=== PATIENT | male | born 1965 | race Two or more races ===

== ENCOUNTER 2018-08-27 17:55 | Inpatient (IN) | payer OTHER ==
[2018-08-27 18:20] VITALS: BMI 21.8
--- NOTE | 2018-08-27 21:15 | HP ---
CIWA Score Nausea/Vomitin (VOMITIG X 3) Muscle Tremors: 4-Moderate,w/Arms Extend Anxiety: 3 Agitation: 3 Paroxysmal Sweats: 1-Minimal Palms Moist Orientation: 1-Uncertain about Date Tacttile Disturbances: 0-None Auditory Disturbances: 0-None Visual Disturbances: 0-None Headache: 3-Moderate CIWA-Ar Total Score: 17 - Admission Criteria [facility]ASAS Guidelines: Admission for Medically Managed Detox: Requires at least one of the followin. CIWA greater than 12 2. Seizures within the past 24 hours 3. Delirium tremens within the past 24 hours 4. Hallucinations within the past 24 hours 5. Acute intervention needed for co occurring medical disorder 6. Acute intervention needed for co occurring psychiatric disorder 7. Severe withdrawal that cannot be handled at a lower level of care (continued vomiting, continued diarrhea, abnormal vital signs) requiring intravenous medication and/or fluids 8. Admission ROS S - [facility] Chief Complaint: ALCOHOL WITHDRAWAL SYMPTOMS Allergies/Adverse Reactions: Allergies Allergy/AdvReac Type Severity Reaction Status Date / Time No Known Allergies Allergy Verified 08/27/18 18:32 History of Present Illness: 53 years oll male with a long history of alcohol dependence is seeking admission to detox. Patient has been in previous detox and reports insignificant period of sobriety. He has history of depression and denies insignificant period of sobriety. He denies suicide attempt and suicidal ideation at this time. Exam Limitations: No Limitations - Ebola screening Have you traveled outside of the country in the last 21 days: No (N) Have you had contact with anyone from an Ebola affected area: No Have you been sick,other than usual withdrawal symptoms: No Do you have a fever: No - Review of Systems Constitutional: Chills, Loss of Appetite, Malaise, Changes in sleep, Weakness EENT: reports: No Symptoms Reported Respiratory: reports: No Symptoms reported Cardiac: reports: No Symptoms Reported GI: reports: Nausea, Poor Appetite, Poor Fluid Intake, Vomiting, Abdominal cramping : reports: No Symptoms Reported Musculoskeletal: reports: Back Pain, Muscle Pain Integumentary: reports: Dryness Neuro: reports: Headache, Tremors Endocrine: reports: No Symptoms Reported Hematology: reports: No Symptoms Reported Psychiatric: reports: Anxious, Depressed Other Systems: Reviewed and Negative Patient History - Patient Medical History Hx Anemia: No Hx Asthma: No Hx Chronic Obstructive Pulmonary Disease (COPD): No Hx Cardiac Disorders: No Hx Hypertension: No Hx Hypercholesterolemia: No Hx Pacemaker: No HX Cerebrovascular Accident: No Hx Seizures: No Hx Dementia: No Hx Diabetes: No Hx Gastrointestinal Disorders: No Hx Genitourinary Disorders: No Hx Sexually Transmitted Disorders: No Hx Renal Disease (ESRD): No Hx Human Immunodeficiency Virus (HIV): No Hx Hepatitis C: No Hx Depression: Yes (Not o medication) Hx Suicide Attempt: No Hx Schizophrenia: No - Patient Surgical History Past Surgical History: No Hx Neurologic Surgery: No Hx Cataract Extraction: No Hx Cardiac Surgery: No Hx Lung Surgery: No Hx Breast Surgery: No Hx Breast Biopsy: No Hx Abdominal Surgery: No Hx Appendectomy: No Hx Cholecystectomy: No Hx Genitourinary Surgery: No Hx Section: No Hx Orthopedic Surgery: No Anesthesia Reaction: No - PPD History Previous Implant?: No Documented Results: Negative w/o proof Date: 12/09/15 PPD to be Administered?: Yes - Reproductive History Patient is a Female of Child Bearing Age (11 -55 yrs old): No (Male) - Smoking Cessation Smoking history: Former smoker Have you smoked in the past 12 months: No If you are a former smoker, when did you quit?: IN 1989 Hx Chewing Tobacco Use: No Initiated information on smoking cessation: No - Substance & Tx. History Hx Alcohol Use: Yes Hx Substance Use: No Substance Use Type: Alcohol Hx Substance Use Treatment: Yes ([facility]) - Substances Abused Alcohol Route: Oral Frequency: Daily Amount used: LIQUOR- 2 PINTS, BEER- 2 SIX PACK Age of first use: 19 Date of Last Use: 08/27/18 Family Disease History - Family Disease History Family History: Denies Admission Physical Exam [facility] - Vital Signs Vital Signs: Vital Signs - 24 hr 08/27/18 18:19 Temperature 96.4 F L Pulse Rate 104 H Respiratory 18 Rate Blood Pressure 143/97 - Physical General Appearance: Yes: Moderate Distress HEENTM: Yes: Within Normal Limits, Normal ENT Inspection, Normocephalic, Normal Voice Respiratory: Yes: Lungs Clear, Normal Breath Sounds, No Respiratory Distress Neck: Yes: Supple Breast: Yes: Breast Exam Deferred Cardiology: Yes: Tachycardia Abdominal: Yes: Normal Bowel Sounds Genitourinary: Yes: Within Normal Limits Back: Yes: Normal Inspection Musculoskeletal: Yes: Muscle Pain Extremities: Yes: Tremors Neurological: Yes: Alert, Normal Mood/Affect Integumentary: Yes: Warm Lymphatic: Yes: Within Normal Limits - Diagnostic (1) Depression Current Visit: Yes Status: Chronic Qualifiers: Depression Type: unspecified Qualified Code(s): F32.9 - Major depressive disorder, single episode, unspecified (2) Alcohol dependence with uncomplicated withdrawal Current Visit: Yes Status: Chronic Cleared for Admission [facility] - Detox or Rehab [facility] Level of Care: Medically Managed Detox Regimen/Protocol: Valium S Breath Alcohol Content Breath Alcohol Content: 0.266 Urine Drug Screen - Results Drug Screen Negative: No Urine Drug Screen Results: BZO-Benzodiazepines
[2018-08-27] MEDS ORDERED: LOPERAMIDE HCL 2 MG CAPSULE PO PRN (21:22)
[2018-08-27] MEDS ORDERED: MAG HYDROX/AL HYDROX/SIMETH 30 ML UNIT-DOSE CUP PO PRN (21:22)
[2018-08-27] MEDS ORDERED: MENTHOL/PHENOL 1 EACH UD MM PRN (21:22)
[2018-08-27] MEDS ORDERED: P-EPHED 60MG/TRIPROLIDI 2.5MG TABLET PO PRN (21:22)
[2018-08-27] MEDS ORDERED: diazePAM 5 MG TABLET PO ONE (21:22)
[2018-08-27] MEDS ORDERED: MAGNESIUM CITRATE 300 ML BOTTLE PO PRN (21:22)
[2018-08-27] MEDS ORDERED: IBUPROFEN 400 MG TABLET (FP) PO PRN (21:22)
[2018-08-27] MEDS ORDERED: MAGNESIUM HYDROX 2400MG/30ML ORAL SUSPENSION 30 ML CUP PO PRN (21:22)
[2018-08-27] MEDS ORDERED: guaiFENesin/D-METHORPHAN HB 10 ML UNIT-DOSE CUPS PO PRN (21:22)
[2018-08-27] MEDS ORDERED: MELATONIN 5 MG TABLETS PO PRN (22:00)
[2018-08-27] MEDS: THIAMINE HCL 100 MG TABLET (FP) PO SCH (22:50)
[2018-08-27] MEDS: diazePAM 5 MG TABLET PO SCH (23:15)
[2018-08-27] MEDS: ACETAMINOPHEN 325 MG TABLET (FP) PO PRN (23:54)
[2018-08-28 00:39] LABS: URINE APPEARANCE CLEAR; URINE BILIRUBIN NEGATIVE (<2.0 mg/dL); URINE COLOR DKYELLOW; URINE GLUCOSE (UA) NEGATIVE (NEGATIVE); URINE KETONE 1+ (NEGATIVE); URINE LEUK ESTERASE NEGATIVE (NEGATIVE); URINE NITRITE NEGATIVE (NEGATIVE); URINE PROTEIN 2+ (NEGATIVE); URINE UROBILINOGEN 4.0 E.U/dl mg/dL (0.2-1.0)
[2018-08-28 00:44] LABS: EPI CELLS RARE /HPF (FEW); URINE HYALINE CAST 43 /lpf; URINE MUCUS RARE
[2018-08-28] MEDS: diazePAM 5 MG TABLET PO SCH ×3 (05:21→22:33)
[2018-08-28] MEDS: ACETAMINOPHEN 325 MG TABLET (FP) PO PRN ×2 (05:21→13:09)
[2018-08-28] MEDS: PRENATAL VITAMINS W/ FOLIC ACID TABLET (FP) PO SCH (09:25)
[2018-08-28] MEDS: diazePAM 5 MG TABLET PO PRN ×3 (09:25→19:33)
[2018-08-28] MEDS ORDERED: NICOTINE 14 MG/24 HOURS TOPICAL PATCH TD SCH (10:00)
[2018-08-28 10:40] LABS: HEMATOCRIT 37.4 % (35.4-49); MCH 30.7 pg (25.7-33.7); MCHC 32.2 g/dl (32.0-35.9); MEAN CELL VOLUME 95.4 fl (80-96); MEAN PLT VOLUME 9.4 fl (7.5-11.1); PLATELET COUNT 121 K/MM3 (134-434); RBC 3.92 M/mm3 (4.00-5.60); RDW 17.1 % (11.9-15.9)
[2018-08-28 11:14] LABS: ALBUMIN 3.3 g/dl (3.4-5.0); ALK PHOS 88 U/L (45-117); ANION GAP 13 MMOL/L (8-16); BILIRUBIN,TOTAL 1.4 mg/dL (0.2-1); BLOOD UREA NITROGEN 7 mg/dL (7-18); CALCIUM 7.6 mg/dL (8.5-10.1); CHLORIDE 94 mmol/L (98-107); CO2 24 mmol/L (21-32); CREATININE 0.6 mg/dL (0.55-1.3); GLUCOSE,RANDOM 84 mg/dL (74-106); POTASSIUM 3.6 mmol/L (3.5-5.1); SGOT/AST 175 U/L (15-37); SGPT/ALT 72 U/L (13-61); SODIUM 131 mmol/L (136-145); TOT PROT 7.1 g/dl (6.4-8.2)
--- NOTE | 2018-08-28 13:04 | PN ---
[facility] CIWA - CIWA Score Nausea/Vomitin-Mild Nausea/No Vomiting Muscle Tremors: 4-Moderate,w/Arms Extend Anxiety: 4-Mod. Anxious/Guarded Agitation: 4-Moderately Restless Paroxysmal Sweats: 3 Orientation: 0-Oriented Tacttile Disturbances: 1-Very Mild Itch/Numbness Auditory Disturbances: 0-None Visual Disturbances: 0-None Headache: 0-None Present CIWA-Ar Total Score: 17 [facility] Progress Note (SOAP) Subjective: Tremor, stomach ache, interrupted sleep Objective: 08/28/18 13:02 Last Vital Signs Temp Pulse Resp BP Pulse Ox 100.1 F H 115 H 18 125/82 08/28/18 09:36 08/28/18 11:00 08/28/18 11:00 08/28/18 09:36 Laboratory Tests 08/27/18 08/28/18 08/28/18 23:26 07:00 07:00 WBC 4.0 RBC 3.92 L Hgb 12.0 Hct 37.4 D MCV 95.4 MCH 30.7 MCHC 32.2 RDW 17.1 H Plt Count 121 L D MPV 9.4 Sodium 131 L Potassium 3.6 Chloride 94 L Carbon Dioxide 24 Anion Gap 13 BUN 7 Creatinine 0.6 Creat Clearance w eGFR > 60 Random Glucose 84 Calcium 7.6 L Total Bilirubin 1.4 H AST 175 H ALT 72 H Alkaline Phosphatase 88 Total Protein 7.1 Albumin 3.3 L Urine Color Dkyellow Urine Appearance Clear Urine pH 5.0 Ur Specific [place] 1.015 Urine Protein 2+ H Urine Glucose (UA) Negative Urine Ketones 1+ H Urine Blood 2+ H Urine Nitrite Negative Urine Bilirubin Negative Urine Urobilinogen 4.0 e.u/dl Ur Leukocyte Esterase Negative Urine WBC (Auto) 1 Urine RBC (Auto) 5 Ur Epithelial Cells Rare Hyaline Casts 43 Urine Mucus Rare Labs reviewed: note with; Na 131, calcium 7.6, total bilirubin 1.4, elevated AST /ALT 175/72, abnormal UA Assessment: 08/28/18 13:03 Withdrawal symptoms Noted with hyponatremia, hypocalcemia, elevated total bilirubin, elevated LFTs ( AST,ALT) and abnormal UA Plan: Continue detox Hyponatremia: repeat serum Na level on Sunday Hypocalcemia: start calcium carbonate 650mg PO bid, repeat BMP on Sunday Elevated total bilirubin: repeat total bilirubin Elevated LFTs (AST,ALT): repeat AST, ALT Abnormal UA: encouraged PO water intake, repeat UA
[2018-08-28] MEDS: CALCIUM CARBONATE 650 MG TABLET PO SCH ×2 (15:21→22:33)
[2018-08-28] MEDS: THIAMINE HCL 100 MG TABLET (FP) PO SCH (22:33)
[2018-08-29 09:31] VITALS: BP 144/99; PULSE 118; TEMP 98
--- NOTE | 2018-08-29 10:03 | PN ---
[facility] CIWA - CIWA Score Nausea/Vomitin-Mild Nausea/No Vomiting Muscle Tremors: 5 Anxiety: 4-Mod. Anxious/Guarded Agitation: 3 Paroxysmal Sweats: No Perspiration Orientation: 1-Uncertain about Date Tacttile Disturbances: 2-Mild Itch/Numbness/Burn Auditory Disturbances: 0-None Visual Disturbances: 0-None Headache: 1-Very Mild CIWA-Ar Total Score: 17 [facility] Progress Note (SOAP) Subjective: tremor anxiety restlessness ichying skin Objective: 08/29/18 11:44 Vital Signs Temperature 98.0 F 08/29/18 09:30 Pulse Rate 118 H 08/29/18 09:30 Respiratory Rate 18 08/29/18 09:30 Blood Pressure 144/99 08/29/18 09:30 O2 Sat by Pulse Oximetry (%) Laboratory Last Values WBC 4.0 K/mm3 (4.0-10.0) 08/28/18 07:00 RBC 3.92 M/mm3 (4.00-5.60) L 08/28/18 07:00 Hgb 12.0 GM/dL (11.7-16.9) 08/28/18 07:00 Hct 37.4 % (35.4-49) D 08/28/18 07:00 MCV 95.4 fl (80-96) 08/28/18 07:00 MCH 30.7 pg (25.7-33.7) 08/28/18 07:00 MCHC 32.2 g/dl (32.0-35.9) 08/28/18 07:00 RDW 17.1 % (11.9-15.9) H 08/28/18 07:00 Plt Count 121 K/MM3 (134-434) L D 08/28/18 07:00 MPV 9.4 fl (7.5-11.1) 08/28/18 07:00 Sodium 131 mmol/L (136-145) L 08/28/18 07:00 Potassium 3.6 mmol/L (3.5-5.1) 08/28/18 07:00 Chloride 94 mmol/L (98-107) L 08/28/18 07:00 Carbon Dioxide 24 mmol/L (21-32) 08/28/18 07:00 Anion Gap 13 MMOL/L (8-16) 08/28/18 07:00 BUN 7 mg/dL (7-18) 08/28/18 07:00 Creatinine 0.6 mg/dL (0.55-1.3) 08/28/18 07:00 Creat Clearance w eGFR > 60 (>60) 08/28/18 07:00 Random Glucose 84 mg/dL (74-106) 08/28/18 07:00 Calcium 7.6 mg/dL (8.5-10.1) L 08/28/18 07:00 Total Bilirubin 1.4 mg/dL (0.2-1) H 08/28/18 07:00 AST 175 U/L (15-37) H 08/28/18 07:00 ALT 72 U/L (13-61) H 08/28/18 07:00 Alkaline Phosphatase 88 U/L (45-117) 08/28/18 07:00 Total Protein 7.1 g/dl (6.4-8.2) 08/28/18 07:00 Albumin 3.3 g/dl (3.4-5.0) L 08/28/18 07:00 Urine Color Sherley 08/29/18 08:20 Urine Appearance Clear 08/29/18 08:20 Urine pH 8.0 (5.0-8.0) D 08/29/18 08:20 Ur Specific [place] 1.015 (1.010-1.035) 08/29/18 08:20 Urine Protein 1+ (NEGATIVE) H 08/29/18 08:20 Urine Glucose (UA) Negative (NEGATIVE) 08/29/18 08:20 Urine Ketones Trace (NEGATIVE) H 08/29/18 08:20 Urine Blood Negative (NEGATIVE) 08/29/18 08:20 Urine Nitrite Negative (NEGATIVE) 08/29/18 08:20 Urine Bilirubin Negative (<2.0 mg/dL) 08/29/18 08:20 Urine Urobilinogen 4.0 e.u/dl mg/dL (0.2-1.0) 08/29/18 08:20 Ur Leukocyte Esterase Negative (NEGATIVE) 08/29/18 08:20 Urine WBC (Auto) <1 /hpf (3-5) 08/29/18 08:20 Urine RBC (Auto) <1 /hpf (0-3) 08/29/18 08:20 Ur Epithelial Cells Rare /HPF (FEW) 08/29/18 08:20 Hyaline Casts 43 /lpf 08/27/18 23:26 Urine Mucus Rare 08/29/18 08:20 RPR Titer Nonreactive (NONREACTIVE) 08/28/18 07:00 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 Carbajal 08/29/18 12:07 Assessment: 08/29/18 12:12 alcohol withdrawal sx rule out urticarial vasculitits Plan: transferred to ER for further evaluation
[2018-08-29] MEDS: PRENATAL VITAMINS W/ FOLIC ACID TABLET (FP) PO SCH (10:46)
[2018-08-29] MEDS: CALCIUM CARBONATE 650 MG TABLET PO SCH ×2 (10:46→22:51)
[2018-08-29] MEDS: diazePAM 5 MG TABLET PO SCH ×2 (10:46→22:52)
[2018-08-29 10:47] LABS: URINE APPEARANCE CLEAR; URINE BILIRUBIN NEGATIVE (<2.0 mg/dL); URINE COLOR AMBER; URINE GLUCOSE (UA) NEGATIVE (NEGATIVE); URINE KETONE TRACE (NEGATIVE); URINE LEUK ESTERASE NEGATIVE (NEGATIVE); URINE NITRITE NEGATIVE (NEGATIVE); URINE PROTEIN 1+ (NEGATIVE); URINE UROBILINOGEN 4.0 E.U/dl mg/dL (0.2-1.0)
[2018-08-29 10:56] LABS: EPI CELLS RARE /HPF (FEW); URINE MUCUS RARE
[2018-08-29] MEDS: THIAMINE HCL 100 MG TABLET (FP) PO SCH (22:52)
[2018-08-31] MEDS ORDERED: diazePAM 5 MG TABLET PO SCH (10:00)
== END 2018-08-29 23:19 | disposition short-term general hospital (02) | DRG 775 ==
LOC: YASAS 17:55 → Y3N 22:03
PROVIDERS: ADMIT Neuromusculoskeletal Medicine & OMM; ATTEND Neuromusculoskeletal Medicine & OMM
PROC: HZ2ZZZZ Detoxification Services for Substance Abuse Treatment (ICD-10-PCS; principal; 2018-08-27)
DX: F10.230 Alcohol dependence with withdrawal, uncomplicated (principal); F32.9 Major depressive disorder, single episode, unspecified; E87.1 Hypo-osmolality and hyponatremia; E83.51 Hypocalcemia; R17 Unspecified jaundice; R94.5 Abnormal results of liver function studies; R82.90 Unspecified abnormal findings in urine; R21 Rash and other nonspecific skin eruption
CPT/HCPCS: 36415; 80053; 81003; 81015; 85027; 86593

== ENCOUNTER 2018-08-29 11:43 | Inpatient (IN) | payer OTHER ==
--- NOTE | 2018-08-29 12:12 | PDOC ---
History of Present Illness - General Chief Complaint: Hives Stated Complaint: BRUISING Time Seen by Provider: 08/29/18 12:09 History Source: Patient Exam Limitations: No Limitations - History of Present Illness Initial Comments: Pt is a 53 yo M, with PMH of gastritis and alcohol abuse, who is presenting with pruritic rash over his entire body since yesterday after taking Valium. Pt was admitted to [facility] for alcohol detox on Sunday08/27/2018. The pt states he has had this rash before, when he was in detox 3 years ago after taking Librium, and again [place]. He has seen a air analysis engineering technician in the past, and the rash has resolved with topical steroid cream and benadryl. Pt also admits to weight loss ~7-8 lbs over the past 1-2 months, which he attributes to his gastritis and stomach irritation after eating. Pt denies any fevers/chills, headache, vision changes, chest pain , palpitations, SOB, nausea/vomiting, urinary symptoms, diarrhea/constipation, or leg swelling. Pt denies any cigarette or drug use. Pt denies any recent travel or sick contacts. 08/29/18 13:15 Past History - Travel Traveled outside of the country in the last 30 days: No Close contact w/someone who was outside of country & ill: No - Past Medical History Allergies/Adverse Reactions: Allergies Allergy/AdvReac Type Severity Reaction Status Date / Time chlordiazepoxide AdvReac Verified 08/29/18 09:46 [From Librium] Home Medications: Ambulatory Orders Diazepam [Valium] 5 mg PO PRN 08/29/18 Anemia: No Asthma: No Cardiac Disorders: No CVA: No COPD: No Dementia: No Diabetes: No GI Disorders: Yes (gastritis) Disorders: No HTN: No Hypercholesterolemia: No Kidney Stones: No Psychiatric Problems: Yes (alcohol abuse) Seizures: No - Surgical History Abdominal Surgery: No Appendectomy: No Cardiac Surgery: No Cholecystectomy: No Lung Surgery: No Neurologic Surgery: No Orthopedic Surgery: No - Reproductive History Testicular Surgery: No - Suicide/Smoking/Psychosocial Hx Smoking History: Never smoked Have you smoked in the past 12 months: No Number of Cigarettes Smoked Daily: 2 If you are a former smoker, when did you quit?: IN 1989 Information on smoking cessation initiated: No 'Breaking Loose' booklet given: 08/27/18 Hx Alcohol Use: Yes Drug/Substance Use Hx: No Substance Use Type: Alcohol Hx Substance Use Treatment: Yes ([facility]) Review of Systems - Review of Systems Able to Perform ROS?: Yes Is the patient limited Kyrgyz proficient: No Constitutional: Yes: Loss of Appetite, Unintentional Wgt. Loss (8 lbs over 1-2 months). No: Chills, Diaphoresis, Fever, Night Sweats, Weight Stable HEENTM: No: Blurred Vision, Recent change in vision, Nose Congestion, Hearing Loss, Throat Pain, Throat Swelling, Difficulty Swallowing Respiratory: No: Cough, Orthopnea, Shortness of Breath, Wheezing Cardiac (ROS): No: Chest Pain, Edema, Irregular Heart Rate, Lightheadedness, Palpitations, Syncope, Chest Tightness ABD/GI: Yes: Poor Appetite. No: Constipated, Diarrhea, Poor Fluid Intake, Vomiting, Abdominal cramping : No: Burning, Dysuria, Frequency, Flank Pain, Pain, Urgency Musculoskeletal: No: Back Pain, Joint Pain, Muscle Pain Integumentary: Yes: Change in Color, Lesions (see HPI), Pruritus, Rash. No: Bruising, Erythema, Flushing, Lumps, Sweating Neurological: Yes: Tremors (with alcohol withdrawal). No: Headache, Seizure ( no alcohol withdrawal seizures in the past), Weakness, Unsteady Gait, Ataxia, Dizziness Psychiatric: Yes: Change in Appetite. No: Sleep Pattern Change Endocrine: Yes: Unexplained Weight Loss. No: Increased Urine Hematologic/Lymphatic: No: Anemia, Blood Clots, Easy Bleeding, Easy Bruising, Bleeding Diathesis, Swollen Glands All Other Systems: Reviewed and Negative *Physical Exam - Vital Signs Last Vital Signs Temp Pulse Resp BP Pulse Ox 98.1 F 95 H 20 152/110 H 100 08/29/18 12:02 08/29/18 12:02 08/29/18 12:02 08/29/18 12:02 08/29/18 12:02 - Physical Exam General Appearance: Yes: Nourished, Appropriately Dressed. No: Apparent Distress HEENT: positive: EOMI, KALPANA, Normal Voice, Symmetrical, TMs Normal, Pharynx Normal, Scleral Icterus (R), Scleral Icterus (L), Hearing Grossly Normal. negative: Normal ENT Inspection, Pale Conjunctivae, Muffled/Hoarse voice, Pharyngeal Erythema, Tonsillar Exudate, Tonsillar Erythema, Rhinorrhea, Sinus Tenderness, TM Bulging, TM Dull, TM Erythema, Lesions, Thrush Neck: positive: Trachea midline, Normal Thyroid, Supple. negative: Tender, Rigid, Stridor, Lymphadenopathy (R), Lymphadenopathy (L), Rigidity Respiratory/Chest: positive: Lungs Clear, Normal Breath Sounds. negative: Chest Tender, Respiratory Distress, Accessory Muscle Use, Crackles, Stridor, Wheezing Cardiovascular: positive: Regular Rhythm, S1, S2, Tachycardia. negative: Regular Rate, Edema, JVD, Murmur Vascular Pulses: Carotid (R): 4+, Carotid (L): 4+ Gastrointestinal/Abdominal: positive: Normal Bowel Sounds, Flat, Soft. negative : Tender, Organomegaly, Pulsatile Mass, Distended, Guarding, Rebound Rectal Exam: positive: deferred Lymphatic: negative: Adenopathy, Tenderness Musculoskeletal: positive: Normal Inspection. negative: CVA Tenderness Extremity: positive: Normal Capillary Refill, Normal Inspection, Normal Range of Motion, Pelvis Stable. negative: Tender, Delayed Capillary Refill, Pedal Edema Integumentary: positive: Dry, Warm, Hives, Rash (patchy, non-raised, non- scaling macular rash. No bite guardado. No petechia, no splinter hemorrhage.). negative: Normal Color, Jaundice (mild scleral icterus only), Clammy, Diaphoresis, Petechiae, Ecchymosis Neurologic: positive: nurse navigator II-XII NML intact, Fully Oriented, Alert, Normal Mood/ Affect, Normal Response, Motor Strength 5/5, Other (mild b/l hand tremor, mild tongue fasciculation). negative: EOM Palsy, Facial Droop, Numbness ED Treatment Course - LABORATORY CBC & Chemistry Diagram: 08/29/18 13:12 08/29/18 14:10 Medical Decision Making - Medical Decision Making Pt was seen at bedside, also will be seen by attending Dr. Guevara. Pt presenting with pruritic rash over his entire body since yesterday after taking Valium. Pt was admitted to [facility] for alcohol detox on Sunday08/27/2018. The pt states he has had this rash before, when he was in detox 3 years ago after taking Librium, and again [place]. He has seen a air analysis engineering technician in the past, and the rash has resolved with topical steroid cream and benadryl. Pt hypertensive (150/110) and tachycardic (HR 100-110) on exam. PE showed no orophayngeal erythema or tonsillar swelling, no LAD. Mild scleral icterus and mild tongue fasciculation. Heart and lung sounds clear, no wheezing. No abdominal tenderness. Diffuse, patchy, non-raised lesions over the skin on all extremities, trunk, and back (sparing the palm, soles, neck and face). No obvious ecchymoses or petechia/splinter hemorrhage. Considering allergic reaction (hives) vs vasculitis (urticarial?) vs erythema nodosum (based on appearance). Lower suspicion for DIC considering no petechia. Ordered work-up including CBC, CMP, coags, and HIV test. Recent syphillis test negative. Provided 25 mg IV benadryl, 1 L NS IVF, and 1 mg Ativan for improvement of pruritis and withdrawal symptoms. Will continue to reassess pt and monitor for symptomatic improvement. 08/29/18 13:00 CBC: H/H WNL, no increased WBC. Platelets borderline low. High eosinophilic predominance (10%). Pending CMP and HIV test. 08/29/18 13:46 CMP hemolyzed. Re-ordered and will be re-sent to lab. Pt in withdrawal, becoming slightly agitated and confused (no longer knows the day of the week). Providing additional 1 mg ativan (2 total) and banana bag. Repeat vitals stable (BP 131/100, HR 95, O2 99% on RA). 08/29/18 14:00 Ordered ECG. Coags WNL. Provided additional 2 mg IV ativan (4 total) as pt continues to be confused and agitated. 08/29/18 14:07 CMP generally WNL for pt; AST 171, ALT 83 (2:1 ratio seen in alcoholism). Providing additional 2 mg IV ativan (6 total) as pt is still trying to get out of bed and agitated. BP stable, HR climbing to 120s. Spoke with hospitalist team (Dr. Castro) who will come to see the pt before deciding on admission. 08/29/18 15:13 HIV test negative. 08/29/18 15:20 Provided additional 2 mg IV ativan (8 total), as pt continues to attempt to get out of bed and is confused. Nursing staff aware and has monitored pt at bedside. Avoiding librium and valium as pt gets exacerbations of his diffuse rash. Provided 1/2 D5 NS in addition to banana bag. 08/29/18 16:38 Pt on 1:1 bedside monitoring. Hospitalist team in ER to see pt and have accepted inpatient admission. 08/29/18 16:53 *DC/Admit/Observation/Transfer Diagnosis at time of Disposition: Rash - Discharge Dispostion Disposition: ASSISTED FACILITY Condition at time of disposition: Good Decision to Admit order: No - Referrals Referrals: Emilie Hartmann MD [Staff Physician] - Juani Ryder MD [Staff Physician] - [facility] [place] [facility] [place] [Provider Group] - Patient Instructions Printed Discharge Instructions: DI for Hives - Post Discharge Activity
[2018-08-29] MEDS ORDERED: LORazepam 1 MG TABLET PO ONE (12:36)
[2018-08-29] MEDS ORDERED: SODIUM CHLORIDE 1,000 ML IV STA ×2 (12:39→17:57)
[2018-08-29] MEDS ORDERED: LORazepam 0.5 MG TABLET ONE (12:55)
[2018-08-29 13:24] LABS: BASO % 0.2 % (0-2.0); EOS % 10.2 % (0-4.5); HEMATOCRIT 36.6 % (35.4-49); HEMOGLOBIN 12.9 GM/dL (11.7-16.9); LYMPH % 12.2 % (8-40); MCHC 35.2 g/dl (32.0-35.9); MEAN CELL VOLUME 93.7 fl (80-96); MEAN PLT VOLUME 10.7 fl (7.5-11.1); MONO % 5.5 % (3.8-10.2); NEUT % 71.9 % (42.8-82.8); PLATELET COUNT 133 K/MM3 (134-434); RDW 16.5 % (11.9-15.9)
--- NOTE | 2018-08-29 13:30 | PDOC ---
Attending Attestation - Resident Resident Name: EsperanzaNoa - ED Attending Attestation I have performed the following: I have examined & evaluated the patient, The case was reviewed & discussed with the resident, I agree w/resident's findings & plan, Exceptions are as noted - HPI HPI: 08/29/18 13:24 53 yo M here from [facility] where he is detoxing from [facility], here with concerns for a rash. pt states he had a pruritic rash x 2 days. does have h/o librium allergy. states has only been getting valium at [facility], state did not get librium. denies new meds otherwise, no h;/o food allergies. no tongue or lip swelling. no wheezing or sob. has had similar reaction years ago and saw commissioned police officer who recommended steroids cream which worked. - Physicial Exam PE: 08/29/18 13:30 awake alert mild slceral icterus. dry mucous membranes. no tongue or lip swelling. lungs clear bilaterally , heart rrr no mrg abd soft skin warm dry. diffuse macular rsh, mild raised urticarial rash, no papules. no scabbing. nuero alert oriented x 3. - Medical Decision Making 08/29/18 13:32 differential erythema multiforme, allergic reaction, dermatitis, plan labs steroids benadryl. hiv scrren. rash is not petechial. 08/29/18 15:16 pt with worsening confusion, shaking, withdrawal sxs despite mutliple doses of iv ativan. will admit to etoh withdrawal, ms changes. started on dextrose solution after bananbag initiated. d/w hospitalist team, will admit rash and etoh withdrawal. pt fall risk. placed on 1:1 observation. 08/29/18 15:18
[2018-08-29 13:40] LABS: INR 1.03 (0.83-1.09); PROTHROMBIN TIME (PATIENT) 12.2 SEC (9.7-13.0)
[2018-08-29 13:42] LABS: ACTIVATED PTT 31.9 SECONDS (25.2-36.5)
[2018-08-29] MEDS ORDERED: FOLIC ACID INJECTION - 1 MG, THIAMINE HCL 100 MG, MULTIVIT INJECTION ADULT 10 ML in SOD... IVPB ONE (14:00)
[2018-08-29] MEDS ORDERED: LORazepam 2 MG/ML SDV VIAL ONE ×5 (14:06→21:47)
[2018-08-29] MEDS ORDERED: methylPREDNISolone NA SUCC 125 MG/2 ML VIAL IVPUSH ONE (14:52)
[2018-08-29 14:54] LABS: ALBUMIN 3.3 g/dl (3.4-5.0); ALK PHOS 79 U/L (45-117); ANION GAP 7 MMOL/L (8-16); BILIRUBIN,TOTAL 1.4 mg/dL (0.2-1); BLOOD UREA NITROGEN 9 mg/dL (7-18); CALCIUM 8.3 mg/dL (8.5-10.1); CHLORIDE 102 mmol/L (98-107); CO2 26 mmol/L (21-32); CREATININE 0.6 mg/dL (0.55-1.3); GLUCOSE,RANDOM 87 mg/dL (74-106); POTASSIUM 3.8 mmol/L (3.5-5.1); SGOT/AST 171 U/L (15-37); SGPT/ALT 83 U/L (13-61); SODIUM 135 mmol/L (136-145); TOT PROT 7.2 g/dl (6.4-8.2)
[2018-08-29] MEDS ORDERED: methylPREDNISolone NA SUCC 125 MG/2 ML VIAL ONE (15:17)
[2018-08-29 18:04] LABS: URINE APPEARANCE CLEAR; URINE BILIRUBIN NEGATIVE (<2.0 mg/dL); URINE COLOR STRAW; URINE GLUCOSE (UA) NEGATIVE (NEGATIVE); URINE KETONE TRACE (NEGATIVE); URINE NITRITE NEGATIVE (NEGATIVE); URINE PROTEIN NEGATIVE (NEGATIVE); URINE UROBILINOGEN NEGATIVE mg/dL (0.2-1.0)
[2018-08-29 18:05] LABS: URINE LEUK ESTERASE NEGATIVE (NEGATIVE)
--- NOTE | 2018-08-29 18:07 | HP ---
CHIEF COMPLAINT:generalized rash PCP:none HISTORY OF PRESENT ILLNESS: pt is a poor historian and currently confused. some HPI obtained from ER 53yo M wtih PMH continous ETOH abuse presented to [facility] on 08/27 for detox and was started on valium due to librium allergy. today they noted a rash and sent him to the ER for further eval. as per patient rash started 4 days ago. does not seem to be pruritic or painful. states he had similar rash to librium in the past which resolved with a steroid cream. currently the patient is unable to give more information. states his last drink was 2 days ago which ws just prior to arriving to [facility] for detox. currently feels nauseated. denies Cp, SOB, fever, chills, V/C/D, auditory/ visual hallucinations. does not know if he takes medications at home ER course was notable for: (1)ativan 8mg IV total (2) (3) Recent Travel:unable to obtain PAST MEDICAL HISTORY:unable to obtain PAST SURGICAL HISTORY:unable to obtain Social History: Smoking:unable to obtain Alcohol: yes Drugs: unable to obtain Family History: Allergies chlordiazepoxide [From Librium] Adverse Reaction (Verified 08/29/18 09:46) HOME MEDICATIONS: Home Medications Medication Instructions Recorded Diazepam [Valium] 5 mg PO PRN 08/29/18 REVIEW OF SYSTEMS CONSTITUTIONAL: Absent: fever, chills, diaphoresis, generalized weakness, malaise, loss of appetite, weight change HEENT: Absent: rhinorrhea, nasal congestion, throat pain, throat swelling, difficulty swallowing, mouth swelling, ear pain, eye pain, visual changes CARDIOVASCULAR: Absent: chest pain, syncope, palpitations, irregular heart rate, lightheadedness , peripheral edema RESPIRATORY: Absent: cough, shortness of breath, dyspnea with exertion, orthopnea, wheezing, stridor, hemoptysis GASTROINTESTINAL:nausea, Absent: abdominal pain, abdominal distension, vomiting, diarrhea, constipation, melena, hematochezia GENITOURINARY: Absent: dysuria, frequency, urgency, hesitancy, hematuria, flank pain, genital pain MUSCULOSKELETAL: Absent: myalgia, arthralgia, joint swelling, back pain, neck pain SKIN: rash, Absent: itching, pallor HEMATOLOGIC/IMMUNOLOGIC: Absent: easy bleeding, easy bruising, lymphadenopathy, frequent infections ENDOCRINE: Absent: unexplained weight gain, unexplained weight loss, heat intolerance, cold intolerance NEUROLOGIC: Absent: headache, focal weakness or paresthesias, dizziness, unsteady gait, seizure, mental status changes, bladder or bowel incontinence PSYCHIATRIC: Absent: anxiety, depression, suicidal or homicidal ideation, hallucinations. PHYSICAL EXAMINATION Vital Signs - 24 hr 08/29/18 08/29/18 08/29/18 12:02 12:16 14:32 Temperature 98.1 F Pulse Rate 95 H Pulse Rate [ 96 H Apical] Respiratory 20 20 Rate Blood Pressure 152/110 H Blood Pressure 145/102 H [Right Arm] O2 Sat by Pulse 100 100 100 Oximetry (%) 08/29/18 16:29 Temperature Pulse Rate Pulse Rate [ 95 H Apical] Respiratory 20 Rate Blood Pressure Blood Pressure 150/104 H [Right Arm] O2 Sat by Pulse 100 Oximetry (%) GENERAL: Alert, confused. answers some questions appropriately. fidgeting in the bed pulling at his gown. HEAD: Normal with no signs of trauma. EYES: Pupils equal, round and reactive to light, extraocular movements intact, sclera anicteric, conjunctiva clear. No lid lag. EARS, NOSE, THROAT: Ears normal, nares patent, oropharynx clear without exudates. Moist mucous membranes. NECK: Normal range of motion, supple without lymphadenopathy, JVD, or masses. LUNGS: Breath sounds equal, clear to auscultation bilaterally. No wheezes, and no crackles. No accessory muscle use. HEART: Regular rate and rhythm, normal S1 and S2 without murmur, rub or gallop. ABDOMEN: Soft, nontender, not distended, normoactive bowel sounds, no guarding, no rebound, no masses. No hepatomegaly or splenomegaly. MUSCULOSKELETAL: Normal range of motion at all joints. No bony deformities or tenderness. No CVA tenderness. UPPER EXTREMITIES: 2+ pulses, warm, well-perfused. No cyanosis. No clubbing. No peripheral edema. +Tremor LOWER EXTREMITIES: 2+ pulses, warm, well-perfused. No calf tenderness. No peripheral edema. NEUROLOGICAL: Cranial nerves II-XII intact. Normal speech. Normal gait. PSYCHIATRIC: Cooperative. Good eye contact. Appropriate mood and affect. SKIN: Warm, dry, diffuse macular rash with darkening in the center. noted to be on the face (R perioribtal, submental, all over the trunk/arms/legs. not raised. no excoriations Laboratory Results - last 24 hr 08/29/18 08/29/18 08/29/18 13:12 13:12 13:12 WBC 6.0 RBC 3.90 L Hgb 12.9 Hct 36.6 MCV 93.7 MCH 33.0 MCHC 35.2 RDW 16.5 H Plt Count 133 L MPV 10.7 D Absolute Neuts (auto) 4.3 Neutrophils % 71.9 Lymphocytes % 12.2 Monocytes % 5.5 Eosinophils % 10.2 H Basophils % 0.2 Nucleated RBC % 0 PT with INR 12.20 INR 1.03 PTT (Actin FS) 31.9 Sodium Cancelled Potassium Cancelled Chloride Cancelled Carbon Dioxide Cancelled Anion Gap Cancelled BUN Cancelled Creatinine Cancelled Creat Clearance w eGFR Cancelled Random Glucose Cancelled Calcium Cancelled Total Bilirubin Cancelled AST Cancelled ALT Cancelled Alkaline Phosphatase Cancelled Total Protein Cancelled Albumin Cancelled HIV 1&2 Antibody Screen HIV P24 Antigen 08/29/18 08/29/18 08/29/18 13:12 14:10 14:10 WBC RBC Hgb Hct MCV MCH MCHC RDW Plt Count MPV Absolute Neuts (auto) Neutrophils % Lymphocytes % Monocytes % Eosinophils % Basophils % Nucleated RBC % PT with INR INR PTT (Actin FS) Sodium 135 L Potassium 3.8 Chloride 102 Carbon Dioxide 26 Anion Gap 7 L BUN 9 Creatinine 0.6 Creat Clearance w eGFR > 60 Random Glucose 87 Calcium 8.3 L Total Bilirubin 1.4 H AST 171 H ALT 83 H Alkaline Phosphatase 79 Total Protein 7.2 Albumin 3.3 L HIV 1&2 Antibody Screen Cancelled Negative HIV P24 Antigen Cancelled Negative ASSESSMENT/PLAN: 53yo M with PMH continuous ETOH dependence sent from [facility] for rash evaulation and started to go into active withdrawals with concerns for possible DT 1. ACute ETOH withdrawals- CIWA 13. received a total of ativan 8mg since arrival. will start ativan 4mg Q6H. will give extra ativan if CIWA score worsens. hold for sedation. currently receiving banana bag. will give IVF for hydration. 1L NS now and then 100cc/H. 2. Erythema multiforme- likely cross reactivity from librium with valium. received benadryl and solumedrol in the ER. will hold for now. consider dermatology eval. will monitor for improvement. 3. Acute transaminitis- likely due to ETOH use. check hepatitis panel. consider liver u/s if worsens. 4. Thrombocytopenia- due to ETOH. no signs of bleeding. 5. DVT ppx- Hep sq 6. will need to try to get more information from patient when able Visit type - Emergency Visit Emergency Visit: Yes Care time: The patient presented to the Emergency Department on the above date and was hospitalized for further evaluation of their emergent condition. - New Patient This patient is new to me today: Yes Date on this admission: 08/29/18 - Critical Care Critical Care patient: No
[2018-08-29] MEDS: DEXTROSE 5%-0.45% SALINE 1,000 ML IV SCH (18:56)
[2018-08-29] MEDS: LORazepam 2 MG/ML SDV VIAL IVPUSH SCH (21:46)
[2018-08-29] MEDS: SODIUM CHLORIDE 1,000 ML IV SCH (21:53)
[2018-08-29] MEDS: HEPARIN NA (PORCINE) 5,000 UNITS/ML 1ML VIAL SQ SCH (23:57)
[2018-08-30 00:16] VITALS: BMI 22.0
[2018-08-30] MEDS: LORazepam 2 MG/ML SDV VIAL IVPUSH SCH ×3 (04:39→15:23)
[2018-08-30] MEDS: HEPARIN NA (PORCINE) 5,000 UNITS/ML 1ML VIAL SQ SCH ×3 (07:12→22:04)
[2018-08-30 08:25] LABS: BASO % 0.1 % (0-2.0); EOS % 0.1 % (0-4.5); HEMATOCRIT 39.3 % (35.4-49); HEMOGLOBIN 12.8 GM/dL (11.7-16.9); LYMPH % 5.3 % (8-40); MCH 31.4 pg (25.7-33.7); MCHC 32.5 g/dl (32.0-35.9); MEAN CELL VOLUME 96.6 fl (80-96); MEAN PLT VOLUME 9.5 fl (7.5-11.1); MONO % 7.2 % (3.8-10.2); NEUT % 87.3 % (42.8-82.8); PLATELET COUNT 124 K/MM3 (134-434); RBC 4.06 M/mm3 (4.00-5.60); RDW 16.4 % (11.9-15.9); WHITE BLOOD COUNT 8.6 K/mm3 (4.0-10.0)
[2018-08-30 09:16] LABS: ALBUMIN 3.4 g/dl (3.4-5.0); ALK PHOS 78 U/L (45-117); ANION GAP 10 MMOL/L (8-16); BILIRUBIN,TOTAL 1.2 mg/dL (0.2-1); BLOOD UREA NITROGEN 8 mg/dL (7-18); CALCIUM 8.2 mg/dL (8.5-10.1); CHLORIDE 104 mmol/L (98-107); CO2 24 mmol/L (21-32); CREATININE 0.6 mg/dL (0.55-1.3); GLUCOSE,RANDOM 84 mg/dL (74-106); PHOSPHOROUS 2.5 mg/dL (2.5-4.9); POTASSIUM 3.2 mmol/L (3.5-5.1); SGOT/AST 109 U/L (15-37); SGPT/ALT 82 U/L (13-61); SODIUM 138 mmol/L (136-145); TOT PROT 7.5 g/dl (6.4-8.2)
--- NOTE | 2018-08-30 10:02 | EKG ---
Test Reason : Blood Pressure : / mmHG Vent. Rate : 097 BPM Atrial Rate : 097 BPM P-R Int : 136 ms QRS Dur : 090 ms QT Int : 356 ms P-R-T Axes : 065 021 052 degrees QTc Int : 452 ms NORMAL SINUS RHYTHM NO PREVIOUS ECGS AVAILABLE Confirmed by KARY CHINCHILLA MD ([id number]) on 08/30/2018 10:01:37 AM Referred By: Confirmed By:KARY CHINCHILLA MD
[2018-08-30] MEDS: SODIUM CHLORIDE 1,000 ML IV SCH (15:24)
[2018-08-30] MEDS: DEXTROSE 5%-0.45% SALINE 1,000 ML IV SCH (15:25)
--- NOTE | 2018-08-30 18:10 | PN ---
Physical Exam: SUBJECTIVE: Patient seen and examined OBJECTIVE: Vital Signs Period Temp Pulse Resp BP Sys/Shaver Pulse Ox Last 24 Hr 98 F-98.2 F 85-108 18-20 137-154/98-108 95-100 GENERAL: The patient is awake, alert, and fully oriented, in no acute distress. HEAD: Normal with no signs of trauma. EYES: PERRL, extraocular movements intact, sclera anicteric, conjunctiva clear. No ptosis. ENT: Ears normal, nares patent, oropharynx clear without exudates, moist mucous membranes. NECK: Trachea midline, full range of motion, supple. LUNGS: Breath sounds equal, clear to auscultation bilaterally, no wheezes, no crackles, no accessory muscle use. HEART: Regular rate and rhythm, S1, S2 without murmur, rub or gallop. ABDOMEN: Soft, nontender, nondistended, normoactive bowel sounds, no guarding, no rebound, no hepatosplenomegaly, no masses. EXTREMITIES: 2+ pulses, warm, well-perfused, no edema. NEUROLOGICAL: Cranial nerves II through XII grossly intact. Normal speech, gait not observed. PSYCH: Normal mood, normal affect. SKIN: Warm, dry, normal turgor, no rashes or lesions noted Laboratory Results - last 24 hr 08/30/18 08/30/18 07:45 07:45 WBC 8.6 RBC 4.06 Hgb 12.8 Hct 39.3 MCV 96.6 H MCH 31.4 MCHC 32.5 RDW 16.4 H Plt Count 124 L MPV 9.5 D Absolute Neuts (auto) 7.5 Neutrophils % 87.3 H D Lymphocytes % 5.3 L D Monocytes % 7.2 Eosinophils % 0.1 D Basophils % 0.1 Nucleated RBC % 0 Sodium 138 Potassium 3.2 L Chloride 104 Carbon Dioxide 24 Anion Gap 10 BUN 8 Creatinine 0.6 Creat Clearance w eGFR > 60 Random Glucose 84 Calcium 8.2 L Phosphorus 2.5 Total Bilirubin 1.2 H AST 109 H ALT 82 H Alkaline Phosphatase 78 Total Protein 7.5 Albumin 3.4 Active Medications Generic Name Dose Route Start Last Admin Trade Name Freq PRN Reason Stop Dose Admin Heparin Sodium (Porcine) 5,000 unit 08/29/18 22:00 08/30/18 13:46 Heparin - SQ Not Given TID HOMA Dextrose/Sodium Chloride 1,000 mls @ 100 mls/hr 08/29/18 15:30 08/30/18 15:25 D5-1/2ns - IV Not Given ASDIR HOMA Sodium Chloride 1,000 mls @ 125 mls/hr 08/29/18 18:00 08/30/18 15:24 Normal Saline - IV 125 mls/hr ASDIR HOMA Administration Lorazepam 4 mg 08/29/18 21:00 08/30/18 15:23 Ativan Injection - IVPUSH 4 mg Q6H-IV HOMA Administration ASSESSMENT/PLAN:
[2018-08-30] MEDS ORDERED: diazePAM CARPU-JECT 10 MG/2 ML DISP.SYRIN IVPUSH ONE (18:40)
--- NOTE | 2018-08-30 18:48 | PN ---
Physical Exam: SUBJECTIVE: Patient seen and examined He is awake, alert to [place], season, not year and not place OBJECTIVE: Vital Signs Period Temp Pulse Resp BP Sys/Shaver Pulse Ox Last 24 Hr 98 F-98.2 F 85-108 18-20 137-154/98-108 95-100 GENERAL: The patient is awake, alert, and fully oriented, in no acute distress. HEAD: Normal with no signs of trauma. EYES: PERRL, extraocular movements intact, sclera anicteric, conjunctiva clear. No ptosis. ENT: Ears normal, nares patent, oropharynx clear without exudates, moist mucous membranes. NECK: Trachea midline, full range of motion, supple. LUNGS: Breath sounds equal, clear to auscultation bilaterally, no wheezes, no crackles, no accessory muscle use. HEART: Regular rate and rhythm, S1, S2 without murmur, rub or gallop. ABDOMEN: Soft, nontender, nondistended, normoactive bowel sounds, no guarding, no rebound, no hepatosplenomegaly, no masses. EXTREMITIES: 2+ pulses, warm, well-perfused, no edema. NEUROLOGICAL: Cranial nerves II through XII grossly intact. Normal speech, gait not observed. PSYCH: Normal mood, normal affect. SKIN: Warm, dry, normal turgor, no rashes or lesions noted He is not withdrawing at this time Laboratory Results - last 24 hr 08/30/18 08/30/18 07:45 07:45 WBC 8.6 RBC 4.06 Hgb 12.8 Hct 39.3 MCV 96.6 H MCH 31.4 MCHC 32.5 RDW 16.4 H Plt Count 124 L MPV 9.5 D Absolute Neuts (auto) 7.5 Neutrophils % 87.3 H D Lymphocytes % 5.3 L D Monocytes % 7.2 Eosinophils % 0.1 D Basophils % 0.1 Nucleated RBC % 0 Sodium 138 Potassium 3.2 L Chloride 104 Carbon Dioxide 24 Anion Gap 10 BUN 8 Creatinine 0.6 Creat Clearance w eGFR > 60 Random Glucose 84 Calcium 8.2 L Phosphorus 2.5 Total Bilirubin 1.2 H AST 109 H ALT 82 H Alkaline Phosphatase 78 Total Protein 7.5 Albumin 3.4 Active Medications Generic Name Dose Route Start Last Admin Trade Name Freq PRN Reason Stop Dose Admin Heparin Sodium (Porcine) 5,000 unit 08/29/18 22:00 08/30/18 13:46 Heparin - SQ Not Given TID HOMA Dextrose/Sodium Chloride 1,000 mls @ 100 mls/hr 08/29/18 15:30 08/30/18 15:25 D5-1/2ns - IV Not Given ASDIR HOMA Sodium Chloride 1,000 mls @ 125 mls/hr 08/29/18 18:00 08/30/18 15:24 Normal Saline - IV 125 mls/hr ASDIR HOMA Administration Lorazepam 4 mg 08/29/18 21:00 08/30/18 15:23 Ativan Injection - IVPUSH 4 mg Q6H-IV HOMA Administration ASSESSMENT/PLAN: 53 Y/O M W Etoh abuse, P/W Rash in the setting of allergic reaction to librium and valium, now denies any more episode of itching and no new rash. Etoh withdrawal: will give ativan 4 mg po q6h and ativan IV 2 mg q6h if withdrawing dermatology: will ask derm to evlauate the patient tomorrow Visit type - Emergency Visit Emergency Visit: Yes ED Registration Date: 08/29/18 Care time: The patient presented to the Emergency Department on the above date and was hospitalized for further evaluation of their emergent condition. - New Patient This patient is new to me today: Yes Date on this admission: 08/31/18 - Critical Care Critical Care patient: No - Discharge Referral Referred to [facility] Med P.C.: Yes
[2018-08-30] MEDS: diazePAM 2 MG TABLET PO SCH (19:47)
[2018-08-30] MEDS: THIAMINE HCL 200 MG/2 ML VIAL IVPB SCH (20:06)
[2018-08-30] MEDS: LORazepam 2 MG/ML SDV VIAL IVPUSH PRN (22:03)
[2018-08-31] MEDS: SODIUM CHLORIDE 1,000 ML IV SCH ×2 (00:07→09:13)
[2018-08-31] MEDS: diazePAM 2 MG TABLET PO SCH ×2 (00:07→06:19)
--- NOTE | 2018-08-31 03:16 | HOSP ---
Subjective - Review of Symptoms Events since last encounter: Called by nursing staff because patient has documented allergy to Valium and has it ordered. Discussed with nursing staff that they should continue with medications as ordered per attending, Dr. Rachel. Nursing staff refused. Medication not given. Physical Examination Vital Signs: Vital Signs Temperature 98.0 F 08/30/18 10:00 Pulse Rate 92 H 08/30/18 10:00 Respiratory Rate 18 08/30/18 21:00 Blood Pressure 137/98 08/30/18 10:00 O2 Sat by Pulse Oximetry (%) 95 08/30/18 21:00 Labs: CBC, BMP 08/30/18 07:45 08/30/18 07:45 Visit type - Emergency Visit Emergency Visit: No - New Patient This patient is new to me today: Yes Date on this admission: 08/31/18 - Critical Care Critical Care patient: No
[2018-08-31 06:05] LABS: HEP.C VIRUS AB <0.1 s/co ratio (0.0-0.9)
[2018-08-31] MEDS: HEPARIN NA (PORCINE) 5,000 UNITS/ML 1ML VIAL SQ SCH ×3 (06:19→22:14)
[2018-08-31 06:29] LABS: BASO % 0.3 % (0-2.0); EOS % 9.9 % (0-4.5); HEMATOCRIT 36.9 % (35.4-49); HEMOGLOBIN 12.1 GM/dL (11.7-16.9); LYMPH % 12.1 % (8-40); MCH 31.2 pg (25.7-33.7); MCHC 32.6 g/dl (32.0-35.9); MEAN CELL VOLUME 95.6 fl (80-96); MEAN PLT VOLUME 8.3 fl (7.5-11.1); MONO % 8.4 % (3.8-10.2); NEUT % 69.3 % (42.8-82.8); PLATELET COUNT 160 K/MM3 (134-434); RBC 3.86 M/mm3 (4.00-5.60); RDW 16.1 % (11.9-15.9); WHITE BLOOD COUNT 7.5 K/mm3 (4.0-10.0)
[2018-08-31 06:57] LABS: ALK PHOS 74 U/L (45-117); ANION GAP 6 MMOL/L (8-16); BLOOD UREA NITROGEN 8 mg/dL (7-18); CALCIUM 7.9 mg/dL (8.5-10.1); CHLORIDE 107 mmol/L (98-107); CO2 25 mmol/L (21-32); CREATININE 0.6 mg/dL (0.55-1.3); GLUCOSE,RANDOM 84 mg/dL (74-106); POTASSIUM 3.2 mmol/L (3.5-5.1); SGOT/AST 82 U/L (15-37); SGPT/ALT 72 U/L (13-61); SODIUM 138 mmol/L (136-145); TOT PROT 6.6 g/dl (6.4-8.2)
[2018-08-31] MEDS ORDERED: MAGNESIUM CITRATE 300 ML BOTTLE PO ONE (08:40)
[2018-08-31] MEDS ORDERED: LORazepam 1 MG TABLET PO PRN (08:48)
[2018-08-31] MEDS: POTASSIUM CHLORIDE TABS 20 MEQ TABLET.ER (FP) PO SCH ×2 (09:12→22:14)
[2018-08-31] MEDS: THIAMINE HCL 200 MG/2 ML VIAL IVPB SCH (09:13)
[2018-08-31] MEDS: LORazepam 2 MG/ML SDV VIAL IVPUSH PRN (09:17)
--- NOTE | 2018-08-31 10:53 | PN ---
Physical Exam: SUBJECTIVE: He is in no distress at time , He is a little sleepy but he woke up , answering questions properly,he has recieved total of 8 mg ativan yesterday OBJECTIVE: MMM No occular discharge No nasal discharge CVS:S1S2, TACHY cardic, regular Abd:BS+ NT/ND EXT: no edema no focal neurologic deficit Vital Signs Period Temp Pulse Resp BP Sys/Shaver Pulse Ox Last 24 Hr 98.1 F 94 150/90 95 Laboratory Results - last 24 hr 08/30/18 08/31/18 08/31/18 10:49 06:10 06:10 WBC 7.5 RBC 3.86 L Hgb 12.1 Hct 36.9 MCV 95.6 MCH 31.2 MCHC 32.6 RDW 16.1 H Plt Count 160 D MPV 8.3 D Absolute Neuts (auto) 5.2 Neutrophils % 69.3 D Lymphocytes % 12.1 D Monocytes % 8.4 Eosinophils % 9.9 H D Basophils % 0.3 Nucleated RBC % 0 Sodium 138 Potassium 3.2 L Chloride 107 Carbon Dioxide 25 Anion Gap 6 L BUN 8 Creatinine 0.6 Creat Clearance w eGFR > 60 Random Glucose 84 Calcium 7.9 L Total Bilirubin 1.0 AST 82 H ALT 72 H Alkaline Phosphatase 74 Total Protein 6.6 Albumin 3.0 L Hepatitis A IgM Ab Negative Hep Bs Antigen Negative Hep B Core IgM Ab Negative Hepatitis C Antibody <0.1 Active Medications Generic Name Dose Route Start Last Admin Trade Name Freq PRN Reason Stop Dose Admin Heparin Sodium (Porcine) 5,000 unit 08/31/18 10:00 08/31/18 09:12 Heparin - SQ 5,000 unit BID HOMA Administration Dextrose/Sodium Chloride 1,000 mls @ 100 mls/hr 08/29/18 15:30 08/30/18 15:25 D5-1/2ns - IV Not Given ASDIR HOMA Sodium Chloride 1,000 mls @ 125 mls/hr 08/29/18 18:00 08/31/18 09:13 Normal Saline - IV 125 mls/hr ASDIR HOMA Administration Lorazepam 2 mg 08/30/18 18:45 08/31/18 09:17 Ativan Injection - IVPUSH 2 mg Q6H PRN Administration WITHDRAWAL(CONT SUBST) Potassium Chloride 40 meq 08/31/18 10:00 08/31/18 09:12 K-Dur - PO 40 meq BID HOMA Administration Thiamine HCl 200 mg 08/30/18 18:45 08/31/18 09:13 Vitamin B1 Injection - IVPB 200 mg DAILY HOMA Administration ASSESSMENT/PLAN: 53 Y.O M W no Etoh abuse, sent to hospital for allergic reaction to Valium for treatment of Etoh withdrawal Etoh withdrawal: he is not withdrawing at this time, will C/W IV ativan PRN 2 mg IV q6h He is on folic acid, thamin Iv He is tolerating Pop diet at this time He is still tachycardic, likely dehydrated will C/W Iv fluids till he is fully awake, for 1 more day Will ask for SW consult Dermatology: will ask derm to evlauate the patient on Sunday rash is improving, no more itching Hepatitis: most likely Etoh abuse:improving, will monitor, will sned for liver US for evaluation of cirrhosis, Hypokalemia: will replete with po suplemetns Mg: likely to be low not on morning labs: will give Po supplement at this time and will monitor evening labs Phos: not in morning labs: will send in evening labs Dispo: back to rehab when rash improves likely on Sunday regular diet DVT ppx: LOVENOX Visit type - Emergency Visit Emergency Visit: Yes ED Registration Date: 08/29/18 Care time: The patient presented to the Emergency Department on the above date and was hospitalized for further evaluation of their emergent condition. - New Patient This patient is new to me today: No - Critical Care Critical Care patient: No - Discharge Referral Referred to [facility] Med P.C.: No
[2018-08-31 16:04] LABS: ANION GAP 9 MMOL/L (8-16); BLOOD UREA NITROGEN 8 mg/dL (7-18); CHLORIDE 108 mmol/L (98-107); CO2 23 mmol/L (21-32); CREATININE 0.6 mg/dL (0.55-1.3); GLUCOSE,RANDOM 86 mg/dL (74-106); PHOSPHOROUS 2.9 mg/dL (2.5-4.9); POTASSIUM 3.3 mmol/L (3.5-5.1); SODIUM 139 mmol/L (136-145)
[2018-09-01 09:09] LABS: BILIRUBIN,DIRECT 0.4 mg/dL (0.0-0.2); BILIRUBIN,TOTAL 0.9 mg/dL (0.2-1); MAGNESIUM 2.2 mg/dL (1.8-2.4); TOT PROT 6.7 g/dl (6.4-8.2)
[2018-09-01] MEDS: POTASSIUM CHLORIDE TABS 20 MEQ TABLET.ER (FP) PO SCH ×2 (10:56→22:34)
[2018-09-01] MEDS: HEPARIN NA (PORCINE) 5,000 UNITS/ML 1ML VIAL SQ SCH ×2 (10:56→22:31)
[2018-09-01] MEDS: THIAMINE HCL 200 MG/2 ML VIAL IVPB SCH (10:58)
--- NOTE | 2018-09-01 14:22 | PN ---
Physical Exam: SUBJECTIVE: Patient seen and examined OBJECTIVE: Vital Signs Period Temp Pulse Resp BP Sys/Shaver Pulse Ox Last 24 Hr 97.4 F-98.7 F 76-93 18-20 125-145/88-99 95 He is more awake this morning, he is oriented to place, year and person, no tremors at this time CVS:S1S2 CTAB Abd;BS+ nt/nd no ROSANA edema Laboratory Results - last 24 hr 08/31/18 09/01/18 14:25 07:45 Sodium 139 Potassium 3.3 L Chloride 108 H Carbon Dioxide 23 Anion Gap 9 BUN 8 Creatinine 0.6 Creat Clearance w eGFR > 60 Random Glucose 86 Calcium 8.0 L Phosphorus 2.9 Magnesium 2.0 2.2 Total Bilirubin 0.9 Direct Bilirubin 0.4 H AST 49 H ALT 57 Alkaline Phosphatase 70 Total Protein 6.7 Albumin 3.0 L Active Medications Generic Name Dose Route Start Last Admin Trade Name Freq PRN Reason Stop Dose Admin Heparin Sodium (Porcine) 5,000 unit 08/31/18 10:00 09/01/18 10:56 Heparin - SQ 5,000 unit BID HOMA Administration Dextrose/Sodium Chloride 1,000 mls @ 100 mls/hr 08/29/18 15:30 08/30/18 15:25 D5-1/2ns - IV Not Given ASDIR HOMA Sodium Chloride 1,000 mls @ 125 mls/hr 08/29/18 18:00 08/31/18 09:13 Normal Saline - IV 125 mls/hr ASDIR HOMA Administration Lorazepam 2 mg 08/30/18 18:45 08/31/18 09:17 Ativan Injection - IVPUSH 2 mg Q6H PRN Administration WITHDRAWAL(CONT SUBST) Potassium Chloride 40 meq 08/31/18 10:00 09/01/18 10:56 K-Dur - PO 40 meq BID HOMA Administration Thiamine HCl 200 mg 08/30/18 18:45 09/01/18 10:58 Vitamin B1 Injection - IVPB 200 mg DAILY HOMA Administration ASSESSMENT/PLAN: 53 Y.O M W no Etoh abuse, sent to hospital for allergic reaction to Valium for treatment of Etoh withdrawal Dermatology: will ask derm to evaluate the patient on Sunday, improved and no more new lesions, still has the old ones from admission rash is improving, no more itching Etoh withdrawal: he is not withdrawing at this time, will C/W IV ativan PRN 2 mg IV q6h He is on folic acid, thiamin Iv, will switch to po from tomorrow He is tolerating Po diet at this time plan to go back to rehab on DC. Hepatitis: most likely Etoh abuse:improving, will monitor, will sned for liver US for evaluation of cirrhosis, Hypokalemia: pending todays labs, likely to improve with better Po intake Dispo: back to rehab when rash improves likely on Sunday. He states that he wants to go home and no more rehab regular diet DVT ppx: LOVENOX Visit type - Emergency Visit Emergency Visit: Yes ED Registration Date: 08/29/18 Care time: The patient presented to the Emergency Department on the above date and was hospitalized for further evaluation of their emergent condition. - New Patient This patient is new to me today: No - Critical Care Critical Care patient: No - Discharge Referral Referred to [facility] Med P.C.: No
[2018-09-01 15:37] LABS: ANION GAP 7 MMOL/L (8-16); BLOOD UREA NITROGEN 9 mg/dL (7-18); CALCIUM 8.5 mg/dL (8.5-10.1); CHLORIDE 104 mmol/L (98-107); CO2 24 mmol/L (21-32); CREATININE 0.6 mg/dL (0.55-1.3); GLUCOSE,RANDOM 100 mg/dL (74-106); MAGNESIUM 2.2 mg/dL (1.8-2.4); POTASSIUM 4.6 mmol/L (3.5-5.1); SODIUM 135 mmol/L (136-145)
[2018-09-01] MEDS: SODIUM CHLORIDE 1,000 ML IV SCH (17:10)
[2018-09-01] MEDS: LORazepam 2 MG/ML SDV VIAL IVPUSH PRN ×2 (17:10→23:02)
[2018-09-01] MEDS ORDERED: diphenhydrAMINE HCL 25 MG CAPSULE (FP) PO ONE (19:15)
[2018-09-01] MEDS ORDERED: LORazepam 2 MG/ML SDV VIAL IVPUSH ONE (21:18)
--- NOTE | 2018-09-01 21:28 | RAPID ---
Physical Examination Vital Signs: Vital Signs Temperature 98.5 F 09/01/18 17:00 Pulse Rate 80 09/01/18 17:00 Respiratory Rate 18 09/01/18 17:00 Blood Pressure 135/85 09/01/18 17:00 O2 Sat by Pulse Oximetry (%) 95 08/31/18 21:00 Findings/Remarks: Rapid response was called at 21:07. Night team was informed by nursing staff that patient got up off of his bed to use his portable urinal at bedside and fell down. Patient recalls the event and denies hitting his head, LOC or loss of vision. Patient says he is currently feeling fine without any new complaints. Patients roommate states patient hit his head with fall. Vitals: 154/99, HR 82, Temp 98.6, RR 16, 96% Head: NCAT Heart: RRR, S1S2 Lungs: CTAB Neuro: A&Ox3, PERRL, EOMI, CN 2-12 intact b/l, Gross sensation intact throughout , 5/5 muscle strength to handgrip, Elbow flexion/extension, Hip Flexion, Plantarflexion, dorsiflexion Labs: CBC, BMP 08/31/18 06:10 09/01/18 14:30 Rapid Response - Rapid Response Assessment: #Fall R/O Bleed -CT Head without contrast stat -1:1 Observation ordered
[2018-09-02] MEDS ORDERED: LORazepam 2 MG/ML SDV VIAL IVPUSH ONE ×3 (02:46→22:15)
[2018-09-02] MEDS ORDERED: LORazepam 2 MG/ML SDV VIAL ONE ×2 (02:48→03:11)
[2018-09-02] MEDS ORDERED: LORazepam 2 MG/ML SDV VIAL IVPUSH PRN (03:52)
[2018-09-02] MEDS: LORazepam 2 MG/ML SDV VIAL IVPUSH PRN ×3 (05:05→18:28)
[2018-09-02] MEDS: HEPARIN NA (PORCINE) 5,000 UNITS/ML 1ML VIAL SQ SCH ×2 (09:24→21:31)
[2018-09-02] MEDS: POTASSIUM CHLORIDE TABS 20 MEQ TABLET.ER (FP) PO SCH (09:24)
[2018-09-02] MEDS: THIAMINE HCL 200 MG/2 ML VIAL IVPB SCH (09:24)
--- NOTE | 2018-09-02 10:28 | PN ---
Progress Note, Physician Chief Complaint: still confused not in distress - Current Medication List Current Medications: Active Medications Heparin Sodium (Porcine) (Heparin -) 5,000 unit SQ BID [facility] Last Admin: 09/02/18 09:24 Dose: 5,000 unit Sodium Chloride (Normal Saline -) 1,000 mls @ 125 mls/hr IV ASDIR [facility] Last Admin: 09/01/18 17:10 Dose: 125 mls/hr Lorazepam (Ativan Injection -) 2 mg IVPUSH Q6H PRN PRN Reason: WITHDRAWAL(CONT SUBST) Last Admin: 09/02/18 05:05 Dose: 2 mg Potassium Chloride (K-Dur -) 40 meq PO BID [facility] Last Admin: 09/02/18 09:24 Dose: 40 meq Thiamine HCl (Vitamin B1 Injection -) 200 mg IVPB DAILY [facility] Last Admin: 09/02/18 09:24 Dose: 200 mg - Objective Vital Signs: Vital Signs Temperature 98.3 F 09/02/18 08:52 Pulse Rate 81 09/02/18 08:52 Respiratory Rate 20 09/02/18 08:52 Blood Pressure 134/95 09/02/18 08:52 O2 Sat by Pulse Oximetry (%) 95 09/01/18 21:00 Constitutional: Yes: Well Nourished, No Distress HENT: Yes: Atraumatic, Normocephalic Neck: Yes: Supple, Trachea Midline. No: Decreased ROM, Lymphadenopathy Cardiovascular: Yes: Regular Rate and Rhythm, S1, S2. No: JVD, Murmur, Rub Respiratory: Yes: Regular, CTA Bilaterally Gastrointestinal: Yes: Normal Bowel Sounds, Soft Edema: No Peripheral Pulses: Left Doralis Pedis: 1+, Right Dorsalis Pedis: 1+ Neurological: Yes: Alert, Oriented (Time, place and person), Confusion ...Motor Strength: LUE, LLE, RUE, RLE Labs: CBC, BMP 08/31/18 06:10 09/01/18 14:30 INR, PTT INR 1.03 (0.83-1.09) 08/29/18 13:12 Problem List - Problems (1) Alcohol withdrawal delirium Assessment/Plan: on Thiamine and Loarzepalm IV PRN last night had a fall Ct haed -ve no trauma , PT evaluation, will oresent to [place] for transfer Code(s): F10.231 - ALCOHOL DEPENDENCE WITH WITHDRAWAL DELIRIUM (2) Rash Assessment/Plan: Due to Valium/Librium now improving Code(s): R21 - RASH AND OTHER NONSPECIFIC SKIN ERUPTION (3) Hyponatremia Assessment/Plan: Resolved Code(s): E87.1 - HYPO-OSMOLALITY AND HYPONATREMIA (4) Elevated LFTs Assessment/Plan: Due to ETOH Code(s): R94.5 - ABNORMAL RESULTS OF LIVER FUNCTION STUDIES (5) Alcohol-induced mood disorder Assessment/Plan: F/U as out patient Code(s): F10.94 - ALCOHOL USE, UNSPECIFIED WITH ALCOHOL-INDUCED MOOD DISORDER (6) Hypokalemia Assessment/Plan: Resolved Code(s): E87.6 - HYPOKALEMIA
--- NOTE | 2018-09-02 10:40 | DS ---
Physical Examination Vital Signs: Vital Signs Temperature 98.3 F 09/02/18 08:52 Pulse Rate 81 09/02/18 08:52 Respiratory Rate 20 09/02/18 08:52 Blood Pressure 134/95 09/02/18 08:52 O2 Sat by Pulse Oximetry (%) 95 09/01/18 21:00 Constitutional: Yes: Well Nourished, No Distress HENT: Yes: Atraumatic, Normocephalic Neck: Yes: Supple, Trachea Midline. No: Decreased ROM, Lymphadenopathy Cardiovascular: Yes: Regular Rate and Rhythm, S1, S2. No: JVD, Murmur, Rub Respiratory: Yes: Regular, CTA Bilaterally Gastrointestinal: Yes: Normal Bowel Sounds, Soft Edema: No Peripheral Pulses: Left Doralis Pedis: 1+, Right Dorsalis Pedis: 1+ Neurological: Yes: Alert, Oriented (Time, place and person), Confusion Motor Strength: LUE, LLE, RUE, RLE Labs: CBC, BMP 08/31/18 06:10 09/01/18 14:30 Discharge Summary Reason For Visit: ALCOHOL WITHDRAWL, DELERIUM, RASH Current Active Problems Alcohol withdrawal delirium (Acute) Hypokalemia (Acute) Rash (Acute) Hospital Course: 53 yrs od male with H/O chronic alvcohal abuse admitted at [facility] for Detox, patient has known skin allergy with Valium and Librium, recived Librium developed skin rash so transferred to Ed for evaluation subsequently admitted for ETOH withdrawal and , Hypokalemia, skin rash , Hyponatremia, electrolyte abmnormality improved, patent CBc, BMP and Lfts are stable day 5th of Hospitalization still had an episode of agitation last night although mental status has improved, patient tripped on the floor had a fall Ct head -ve for any intrcranial changes. Condition: Stable - Instructions Referrals: [facility] – [place] Internal Med at [place] [Provider Group] - 2 Weeks Emilie Hartmann MD [Staff Physician] - 2 Weeks Juani Ryder MD [Staff Physician] - Disposition: TRANSFER ACUTE CARE/OTHER HOSP - Home Medications Comprehensive Discharge Medication List: Ambulatory Orders Potassium Chloride [K-Dur -] 20 meq PO DAILY #15 tablet.er 09/02/18 Thiamine HCl [Vitamin B1 Injection -] 200 mg IVPB DAILY #30 vial 09/02/18
[2018-09-03] MEDS: LORazepam 2 MG/ML SDV VIAL IVPUSH PRN (01:05)
[2018-09-03] MEDS ORDERED: LORazepam 2 MG/ML SDV VIAL IM ONE (05:10)
[2018-09-03 06:27] LABS: BASO % 1.2 % (0-2.0); HEMATOCRIT 41.8 % (35.4-49); HEMOGLOBIN 13.7 GM/dL (11.7-16.9); LYMPH % 27.8 % (8-40); MCH 31.4 pg (25.7-33.7); MCHC 32.8 g/dl (32.0-35.9); MEAN CELL VOLUME 95.9 fl (80-96); MONO % 22.9 % (3.8-10.2); NEUT % 43.1 % (42.8-82.8); PLATELET COUNT 338 K/MM3 (134-434); RBC 4.36 M/mm3 (4.00-5.60); RDW 16.5 % (11.9-15.9)
[2018-09-03 06:58] LABS: ALBUMIN 3.9 g/dl (3.4-5.0); ALK PHOS 80 U/L (45-117); ANION GAP 9 MMOL/L (8-16); BLOOD UREA NITROGEN 8 mg/dL (7-18); CALCIUM 9.4 mg/dL (8.5-10.1); CHLORIDE 103 mmol/L (98-107); CO2 24 mmol/L (21-32); CREATININE 0.7 mg/dL (0.55-1.3); GLUCOSE,RANDOM 85 mg/dL (74-106); POTASSIUM 3.9 mmol/L (3.5-5.1); SGOT/AST 41 U/L (15-37); SGPT/ALT 58 U/L (13-61); SODIUM 135 mmol/L (136-145); TOT PROT 8.4 g/dl (6.4-8.2)
[2018-09-03 10:25] LABS: ANISOCYTOSIS 1+; MACROCYTOSIS 1+; OVALOCYTE 1+; PLATELET ESTIMATE NORMAL; TARGET CELLS 1+
[2018-09-03] MEDS: THIAMINE HCL 100 MG TABLET (FP) PO SCH (11:10)
[2018-09-03] MEDS: HEPARIN NA (PORCINE) 5,000 UNITS/ML 1ML VIAL SQ SCH ×2 (11:10→22:55)
[2018-09-03] MEDS: POTASSIUM CHLORIDE TABS 20 MEQ TABLET.ER (FP) PO SCH (11:10)
--- NOTE | 2018-09-03 11:45 | PN ---
Progress Note, Physician Chief Complaint: still confused not in distress - Current Medication List Current Medications: Active Medications Heparin Sodium (Porcine) (Heparin -) 5,000 unit SQ BID [facility] Last Admin: 09/03/18 11:10 Dose: 5,000 unit Lorazepam (Ativan Injection -) 2 mg IVPUSH Q6H PRN PRN Reason: WITHDRAWAL(CONT SUBST) Last Admin: 09/03/18 01:05 Dose: 2 mg Potassium Chloride (K-Dur -) 40 meq PO DAILY [facility] Last Admin: 09/03/18 11:10 Dose: 40 meq Thiamine HCl (Vitamin B1 -) 100 mg PO DAILY [facility] Last Admin: 09/03/18 11:10 Dose: 100 mg - Objective Vital Signs: Vital Signs Temperature 98.4 F 09/03/18 11:20 Pulse Rate 101 H 09/03/18 11:20 Respiratory Rate 20 09/03/18 11:20 Blood Pressure 128/87 09/03/18 11:20 O2 Sat by Pulse Oximetry (%) 96 09/02/18 21:00 Constitutional: No Distress HEENT: Atraumatic, Normocephalic Neck: Supple, Trachea Midline. No: Decreased ROM, Lymphadenopathy Cardiovascular: Regular Rate and Rhythm, S1, S2. No: JVD, Murmur, Rub Respiratory: Yes: Regular, CTA Bilaterally Gastrointestinal: Yes: Normal Bowel Sounds, Soft EXT: No Edema, Peripheral Pulses: Left Doralis Pedis: 1+, Right Dorsalis Pedis : 1+ Neurological: Patient is more alert still confused walks with a staggering gait, sways on Rt side Labs: CBC, BMP 09/03/18 05:55 09/03/18 05:55 INR, PTT INR 1.03 (0.83-1.09) 08/29/18 13:12 Problem List - Problems (1) Alcohol withdrawal delirium Assessment/Plan: on Thiamine off Benzodiazapine Code(s): F10.231 - ALCOHOL DEPENDENCE WITH WITHDRAWAL DELIRIUM (2) Rash Assessment/Plan: Due to Valium/Librium now improving Code(s): R21 - RASH AND OTHER NONSPECIFIC SKIN ERUPTION (3) Hyponatremia Assessment/Plan: Resolved Code(s): E87.1 - HYPO-OSMOLALITY AND HYPONATREMIA (4) Elevated LFTs Assessment/Plan: Due to ETOH Code(s): R94.5 - ABNORMAL RESULTS OF LIVER FUNCTION STUDIES (5) Alcohol-induced mood disorder Assessment/Plan: F/U as out patient Code(s): F10.94 - ALCOHOL USE, UNSPECIFIED WITH ALCOHOL-INDUCED MOOD DISORDER (6) Hypokalemia Assessment/Plan: Resolved Code(s): E87.6 - HYPOKALEMIA (7) Gait instability Assessment/Plan: Patient had poor gait, can be due to ETOH induced cerebellar ataxia, high risk of fall will F/U with ETOH rehab program to evaluate , Neurology consult, fall precautions. Code(s): R26.81 - UNSTEADINESS ON FEET
[2018-09-04 08:09] VITALS: TEMP 97.8
[2018-09-04 08:13] LABS: BASO % 1.5 % (0-2.0); HEMATOCRIT 43.3 % (35.4-49); LYMPH % 32.7 % (8-40); MCH 31.5 pg (25.7-33.7); MCHC 32.4 g/dl (32.0-35.9); MEAN CELL VOLUME 97.2 fl (80-96); MEAN PLT VOLUME 8.2 fl (7.5-11.1); MONO % 22.2 % (3.8-10.2); NEUT % 37.6 % (42.8-82.8); PLATELET COUNT 386 K/MM3 (134-434); RBC 4.46 M/mm3 (4.00-5.60); RDW 16.7 % (11.9-15.9); WHITE BLOOD COUNT 6.2 K/mm3 (4.0-10.0)
[2018-09-04 08:32] LABS: ANION GAP 6 MMOL/L (8-16); BLOOD UREA NITROGEN 11 mg/dL (7-18); CALCIUM 9.6 mg/dL (8.5-10.1); CHLORIDE 103 mmol/L (98-107); CO2 27 mmol/L (21-32); CREATININE 0.9 mg/dL (0.55-1.3); GLUCOSE,RANDOM 81 mg/dL (74-106); POTASSIUM 5.3 mmol/L (3.5-5.1); SODIUM 136 mmol/L (136-145)
--- NOTE | 2018-09-04 08:49 | CON.NEURO ---
Consult - Alcohol/Substance Use Hx Alcohol Use: Yes - Smoking History Smoking history: Never smoked Have you smoked in the past 12 months: No Aproximately how many cigarettes per day: 2 If you are a former smoker, when did you quit?: IN 1989 Home Medications - Allergies Allergies/Adverse Reactions: Allergies Allergy/AdvReac Type Severity Reaction Status Date / Time diazepam [From Valium] AdvReac Mild Hives Verified 08/31/18 08:24 chlordiazepoxide AdvReac Verified 08/29/18 09:46 [From Librium] - Home Medications Home Medications: Ambulatory Orders Potassium Chloride [K-Dur -] 20 meq PO DAILY #15 tablet.er 09/02/18 Thiamine HCl [Vitamin B1 Injection -] 200 mg IVPB DAILY #30 vial 09/02/18 Physical Exam-Neuro Vital Signs: Vital Signs Temperature 97.8 F 09/04/18 06:00 Pulse Rate 71 09/04/18 06:00 Respiratory Rate 18 09/04/18 06:00 Blood Pressure 134/96 09/04/18 06:00 O2 Sat by Pulse Oximetry (%) 96 09/02/18 21:00 Labs: CBC, BMP 09/04/18 07:18 09/04/18 07:18 INR, PTT INR 1.03 (0.83-1.09) 08/29/18 13:12 Assessment/Plan cc Difficulty walking HPI 53 year old logan history of alchol abuse, he was in detox center and came to hospital for rash due to valium and librium allergy. He continue to have difficulty walking, he denies any back or neck pain. He has been everyday drinker for several years. He denies any difficulty speaking, dysphagia , dysarthira, weakness or sensory loss. Patient has difficulty to walk. Medication : Ativan, mvi,thiamine nad folic acid Allergies chlordiazepoxide [From Librium] Adverse Reaction (Verified 08/29/18 09:46) and Librium HOME MEDICATIONS: Home Medications Medication Instructions Recorded Diazepam [Valium] 5 mg PO PRN 08/29/18 Family History , ROS Social History : Reviewed in chart Neurological Examination Alert , says he is at [facility] but confusing that this could be [facility] hospital He says this is sunday and 2017 speech is normal eomi, pupils reactive no face asymmetry moving all extremity sensation is normal reflex are grade 2 ct head unremarkable Assessment: Difficulty walking , likely to be cerebellar ataxia, there is no evidence of extrapyramidal syndrome, neuropathy or cord compression. Plan: I would add folic acid and mvi - Refrain from alcohol -PT - over all prognosis and diagnosis was discussed with patient - He will benefit from skill skilled nursing care Thanking you so much Bryn Gomes MD
[2018-09-04] MEDS ORDERED: MULTIVITAMINS (DAILY MVI) TABLET (FP) PO SCH (10:00)
[2018-09-04] MEDS ORDERED: FOLIC ACID 1 MG TABLET (FP) PO SCH (10:00)
[2018-09-04] MEDS: POTASSIUM CHLORIDE TABS 20 MEQ TABLET.ER (FP) PO SCH (10:45)
[2018-09-04] MEDS: THIAMINE HCL 100 MG TABLET (FP) PO SCH (10:45)
[2018-09-04] MEDS: HEPARIN NA (PORCINE) 5,000 UNITS/ML 1ML VIAL SQ SCH (10:45)
[2018-09-04 12:51] LABS: ANISOCYTOSIS 1+; MACROCYTOSIS 0; PLATELET ESTIMATE NORMAL; TARGET CELLS 1+
[2018-09-04] MEDS ORDERED: LORazepam 1 MG TABLET PO PRN (13:36)
--- NOTE | 2018-09-04 13:45 | PN ---
Progress Note, Physician Chief Complaint: Mr Wright is without complaint. No cp, sob, n/v. - Current Medication List Current Medications: Active Medications Folic Acid (Folic Acid -) 1 mg PO BID [facility] Last Admin: 09/04/18 10:45 Dose: 1 mg Heparin Sodium (Porcine) (Heparin -) 5,000 unit SQ BID [facility] Last Admin: 09/04/18 10:45 Dose: 5,000 unit Lorazepam (Ativan -) 1 mg PO BID PRN PRN Reason: ANXIETY Stop: 09/04/18 23:59 Lorazepam (Ativan -) 1 mg PO DAILY PRN PRN Reason: ANXIETY Multivitamins/Minerals/Vitamin C (Tab-A-Vit -) 1 tab PO DAILY [facility] Last Admin: 09/04/18 10:45 Dose: 1 tab Thiamine HCl (Vitamin B1 -) 100 mg PO DAILY [facility] Last Admin: 09/04/18 10:45 Dose: 100 mg - Objective Vital Signs: Vital Signs Temperature 36.6 C 09/04/18 06:00 Pulse Rate 71 09/04/18 06:00 Respiratory Rate 18 09/04/18 09:00 Blood Pressure 134/96 09/04/18 06:00 O2 Sat by Pulse Oximetry (%) 96 09/02/18 21:00 Constitutional: Yes: Well Nourished, No Distress, Calm Cardiovascular: Yes: Regular Rate and Rhythm. No: Gallop, Murmur, Rub Respiratory: Yes: Regular, CTA Bilaterally. No: Rales, Rhonchi, Wheezes Gastrointestinal: Yes: Normal Bowel Sounds, Soft. No: Distention, Tenderness Extremities: Yes: WNL Edema: No Labs: CBC, BMP 09/04/18 07:18 09/04/18 07:18 INR, PTT INR 1.03 (0.83-1.09) 08/29/18 13:12 Assessment/Plan (1) Alcohol withdrawal delirium Assessment/Plan: -continue thiamine and folate -will stop prn IV ativan -taper oral ativan Code(s): F10.231 - ALCOHOL DEPENDENCE WITH WITHDRAWAL DELIRIUM (2) Rash Assessment/Plan: -resolved Code(s): R21 - RASH AND OTHER NONSPECIFIC SKIN ERUPTION (3) Hyponatremia Assessment/Plan: -resolved Code(s): E87.1 - HYPO-OSMOLALITY AND HYPONATREMIA (4) Elevated LFTs Assessment/Plan: -secondary to ETOH Code(s): R94.5 - ABNORMAL RESULTS OF LIVER FUNCTION STUDIES (5) Alcohol-induced mood disorder Assessment/Plan: -stable Code(s): F10.94 - ALCOHOL USE, UNSPECIFIED WITH ALCOHOL-INDUCED MOOD DISORDER (6) Hypokalemia Assessment/Plan: -resolved Code(s): E87.6 - HYPOKALEMIA (7) Gait instability Assessment/Plan: -neurology note reviewed -? if qualifies for SNF -d/w CM/SW Code(s): R26.81 - UNSTEADINESS ON FEET Dispo -plan for discharge tomorrow
[2018-09-04 14:38] VITALS: BP 123/88; PULSE 91
--- NOTE | 2018-09-04 18:27 | DS ---
Physical Examination Vital Signs: Vital Signs Temperature 36.6 C 09/04/18 14:00 Pulse Rate 91 H 09/04/18 14:00 Respiratory Rate 20 09/04/18 14:00 Blood Pressure 123/88 09/04/18 14:00 O2 Sat by Pulse Oximetry (%) 96 09/02/18 21:00 Labs: CBC, BMP 09/04/18 07:18 09/04/18 07:18 Discharge Summary Reason For Visit: ALCOHOL WITHDRAWL, DELERIUM, RASH Current Active Problems Alcohol withdrawal delirium (Acute) Gait instability (Acute) Hypokalemia (Acute) Rash (Acute) Hospital Course: Please refer to progress note written for today but in short Mr Wright is a 53 year old male admitted for generalized rash after taking valium. He was admitted and the rash resolved. He presented for detox and this occurred successfully with ativan. He was planned for discharge home but was noted to be unsteady and had a fall. Because of this his discharge was held. He was seen by PT and neurology. There was discussion of SNF but family requested to take him home. He is safe for discharge home. 31 minutes spent in preparation of this discharge Condition: Stable - Instructions Diet, Activity, Other Instructions: resume previous diet and activity Referrals: [facility] [place] [Provider Group] - 2 Weeks Emilie Hartmann MD [Staff Physician] - 2 Weeks Juani Ryder MD [Staff Physician] - Disposition: HOME - Home Medications Comprehensive Discharge Medication List: Ambulatory Orders Folic Acid - 1 mg PO BID #60 tablet 09/04/18 Multivitamins [Multivit ([facility] Formulary)] 1 tab PO DAILY #30 tab 09/04/18 Thiamine HCl [Vitamin B1 -] 100 mg PO DAILY #30 tablet 09/04/18
[2018-09-05] MEDS ORDERED: LORazepam 1 MG TABLET PO PRN (08:00)
== END 2018-09-04 19:14 | disposition home or self-care (01) | DRG 775 ==
LOC: JER 11:43 → JERBED 14:58 → J6S 23:03
PROVIDERS: ADMIT Internal Medicine; ATTEND Internal Medicine
PROC: HZ2ZZZZ Detoxification Services for Substance Abuse Treatment (ICD-10-PCS; principal; 2018-08-30)
DX: F10.231 Alcohol dependence with withdrawal delirium (principal); D69.6 Thrombocytopenia, unspecified; E78.6 Lipoprotein deficiency; Y93.89 Activity, other specified; Y99.8 Other external cause status; E86.0 Dehydration; E87.6 Hypokalemia; L27.0 Generalized skin eruption due to drugs and medicaments taken internally; T42.4X5A Adverse effect of benzodiazepines, initial encounter; R21 Rash and other nonspecific skin eruption; E87.1 Hypo-osmolality and hyponatremia; R94.5 Abnormal results of liver function studies; Z87.891 Personal history of nicotine dependence; K29.70 Gastritis, unspecified, without bleeding; R74.0 Nonspecific elevation of levels of transaminase and lactic acid dehydrogenase [LDH]; L51.9 Erythema multiforme, unspecified; R27.0 Ataxia, unspecified; G31.2 Degeneration of nervous system due to alcohol
CPT/HCPCS: 36415; 70450-TC; 80048; 80053; 80074; 80076; 81003; 82607; 82746; 83735; 84100; 85025; 85610; 85730; 87389; 93005; 93010; 97116-GP; 97162-GP; 99285-25; J1644; J7030